=== PATIENT | female | born 1975 | race Caucasian/White ===

== ENCOUNTER 2017-08-11 05:34 | Outpatient (CLI) | payer MEDICAID ==
[~2017-08-11] VITALS: Ht 162.6 cm; Wt 112.9 kg
[2017-08-11] MEDS ORDERED: METF850T2 PO (12:00)
[2017-08-11] MEDS ORDERED: LIRA0.6P3 SQ (12:00)
[2017-08-11] MEDS ORDERED: LEVO75TA6 PO (12:00)
[2017-08-11] MEDS ORDERED: VENL100T2 PO (12:00)
[2017-08-11] MEDS ORDERED: DICY20TA10 PO (12:00)
[2017-08-11] MEDS ORDERED: RANI300T4 PO (12:00)
[2017-08-11] MEDS ORDERED: NORT25CA PO (12:00)
[2017-08-11] MEDS ORDERED: GABA-488 PO (12:00)
[2017-08-11] MEDS ORDERED: ARIP15TA4 PO (12:00)
[2017-08-11] MEDS ORDERED: LOSA25TA21 PO (12:00)
== END 2017-08-11 12:03 ==
LOC: PREOP 05:34
PROVIDERS: ATTEND Surgery
DX: Z01.818 Encounter for other preprocedural examination (principal); K43.9 Ventral hernia without obstruction or gangrene

== ENCOUNTER 2017-08-13 05:55 | Day surgery (SDC) | payer MEDICAID ==
[~2017-08-13] VITALS: Ht 162.6 cm; Wt 109.9 kg
[~2017-08-13 05:55] MED LIST: ARIP15TA4 PO; DICY20TA10 PO; GABA-488 PO; LEVO75TA6 PO; LIRA0.6P3 SQ; LOSA25TA21 PO; METF850T2 PO; NORT25CA PO; RANI300T4 PO; VENL100T2 PO
[2017-08-13] MEDS ORDERED: morphine INJ 10 MG/ML 1ML (SYR OR VIAL) IV PRN ×2 (06:15→10:45)
[2017-08-13] MEDS ORDERED: oxyCODONE ER 10 MG (OxyCONTIN CR) TAB PO ONE ×2 (06:15→10:45)
[2017-08-13] MEDS ORDERED: CELECOXIB 100 MG (CeleBREX) CAP PO ONE ×2 (06:15→10:45)
[2017-08-13] MEDS ORDERED: ACETAMINOPHEN 500 MG TAB (TYLENOL) PO ONE ×2 (06:15→10:45)
[2017-08-13] MEDS ORDERED: PREGABALIN 75 MG (LYRICA) CAP PO ONE ×2 (06:15→10:45)
[2017-08-13 06:34] LABS: RED BLOOD COUNT 4.55 10^6/uL (4.35-5.85); RED CELL DISTRIBUTION WIDTH 13.5 % (10.0-14.5); WHITE BLOOD COUNT 10.4 10^3/uL (4.3-11.0)
[2017-08-13] MEDS ORDERED: KETAMINE HCL 100 MG/ML 5 ML VIAL ONE (06:34)
[2017-08-13] MEDS ORDERED: fentaNYL INJECTION 100 MCG/2 ML AMP ONE (06:34)
[2017-08-13] MEDS ORDERED: MIDAZOLAM 2 MG/2 ML (VERSED) VIAL ONE (06:34)
[2017-08-13] MEDS ORDERED: LIDOCAINE PF 2% 5 ML (XYLOCAINE) VIAL ONE ×2 (06:34→06:51)
[2017-08-13] MEDS ORDERED: ROCURONIUM 50 MG/5 ML (ZEMURON) VIAL IV ONE ×2 (06:34→08:39)
[2017-08-13] MEDS ORDERED: proPOfol 200 MG/20 ML (DIPRIVAN) VIAL IV ONE (06:34)
[2017-08-13] MEDS ORDERED: ONDANSETRON 4 MG/2 ML (SDV) Z0FRAN ONE (06:34)
[2017-08-13] MEDS ORDERED: SEVOFLURANE (ULTANE) 15 ML INHAL SOLN ONE ×10 (06:34→10:10)
[2017-08-13] MEDS ORDERED: ceFAZolin 2 GM/50 ML NS 50 ML ONE (06:44)
[2017-08-13] MEDS ORDERED: LIDOCAINE PF 0.5% 50 ML (XYLOCAINE) VIAL ONE (06:58)
[2017-08-13 07:07] VITALS: BP 142/95
[2017-08-13] MEDS ORDERED: LACTATED RINGERS 1,000 ML IV PRN (07:09)
[2017-08-13] MEDS ORDERED: ceFAZolin 2 GM/NS 50 ML IV ONE (07:15)
[2017-08-13] MEDS ORDERED: BUP/EPI 0.5% 1:200,000 (MARCAINE) 10ML VIAL IJ ONE (07:18)
--- NOTE | 2017-08-13 08:04 | History & Physicial ---
History of Present Illness History of Present Illness Reason for visit/HPI To undergo robotic assisted repair of ventral hernia with mesh Date of Admission 08/13/17 Date Seen by Provider: Jul 08, 2017 Time Seen by Provider: 08:01 I consulted on this patient on 08/13/17 07:59 Attending Physician Deana Loaiza MD Admitting Physician Parveen Singh DO Consult Allergies and Home Medications Allergies Coded Allergies: cimetidine (Verified Allergy, Unknown, 08/11/17) cortisone (Verified Allergy, Unknown, swelling, 08/11/17) aspirin (Verified Adverse Reaction, Unknown, hx of ulcers, 08/11/17) bismuth subsalicylate (Verified Adverse Reaction, Unknown, vomiting, 08/11) Home Medications Aripiprazole 15 Mg Tablet, 15 MG PO DAILY, (Reported) Dicyclomine HCl 20 Mg Tablet, 20 MG PO ACHS, (Reported) Gabapentin 300 Mg Capsule, 600 MG PO TID, (Reported) take 2 (300mg) tab Levothyroxine Sodium 75 Mcg Tablet, 75 MCG PO DAILY, (Reported) Liraglutide 0.6 Mg/0.1 Ml Pen.injctr, 1.8 MG SQ DAILY, (Reported) Losartan Potassium 25 Mg Tablet, 25 MG PO DAILY, (Reported) Metformin HCl 850 Mg Tablet, 850 MG PO TIDWM, (Reported) Nortriptyline HCl 25 Mg Capsule, 25 MG PO HS, (Reported) Ranitidine HCl 300 Mg Tablet, 300 MG PO BID, (Reported) Venlafaxine HCl 100 Mg Tablet, 100 MG PO TIDWM, (Reported) Past [id number] Hx Patient Social History Marrital Status: Employed/Student: unemployed Alcohol Use: Denies Use Recreational Drug Use: No Smoking Status: Never a Smoker Recent Foreign Travel: No Contact w/other who traveled: No Recent Hopitalizations: No Recent Infectious Disease Expo: No Immunizations Up To Date Tetanus Booster (TDap): Unknown Seasonal Allergies Seasonal Allergies: Yes (Sometimes) Surgeries Yes Appendectomy, Bowel Surgery, Gallbladder, Hysterectomy Respiratory No Currently Using CPAP: Yes Cardiovascular Yes Hypertension Neurological Yes Neuropathy Reproductive System : No 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 Genitourinary No Gastrointestinal Yes Ulcer Musculoskeletal Yes Arthritis Endocrine History of Endocrine Disorders: Yes Endocrine Disorders: Diabetes, Non-Insulin dep HEENT History of HEENT Disorders: No Loss of Vision: Denies Hearing Impairment: Denies Cancer Yes Colon Did You Recieve Any Treatments: Yes Type of Treatment: Surgical Intervention Psychosocial History of Psychiatric Problem: Yes Behavioral Health Disorders: Bipolar, Depression Integumentary History of Skin or Integumenta: No Skin/Integumentary Disorders: Psoriasis Reviewed Nursing Assessment Reviewed/Agree w Nursing PMH: Yes Family Medical History Significant Family History: Cancer Constitutional: no symptoms reported EENTM: no symptoms reported Gastrointestinal: see HPI Genitourinary: no symptoms reported Musculoskeletal: joint pain Skin: no symptoms reported Psychiatric/Neurological: Anxiety Physical Exam Vital Signs Vital Sign - Last 12Hours 08/13/17 07:07 Temp 98.7 Pulse 97 Resp 16 B/P (MAP) 142/95 Pulse Ox 97 O2 Delivery Room Air Capillary Refill : General Appearance: No Apparent Distress Neck: Normal Inspection Respiratory: Lungs Clear Cardiovascular: Regular Rate, Rhythm Gastrointestinal: Other Rectal: Deferred Back: Normal Inspection Extremity: Normal Inspection Neurologic/Psychiatric: Alert, Oriented x3 Skin: Warm/Dry Comments Lefr lower para-median and a midlinescar with a hernia around the umbilicus. Transverse scar over the left flank with no hernia Assessment/Plan Assessment and Plan Lady with a ventral hernia, for robotic assisted repair with mesh. Discussed in detail Problems: Admission Diagnosis Ventral hernia Clinical Quality Measures DVT/VTE Risk/Contraindication: Risk Factor Score Per Nursin RFS Level Per Nursing on Admit: 4+=Very High DEANA LOAIZA MD Aug 13, 2017 8:04 am
--- NOTE | 2017-08-13 08:05 | Progress Note-Pre Operative ---
Pre-Operative Progress Note H&P Reviewed The H&P was reviewed, patient examined and no changes noted. Date Seen by Provider: Aug 07, 2007 Time Seen by Provider: 10:35 Date H&P Reviewed: Aug 13, 2017 Time H&P Reviewed: 07:55 Pre-Operative Diagnosis: Ventral hernia DEANA LOAIZA MD Aug 13, 2017 8:05 am
[2017-08-13] MEDS ORDERED: NEOSTIGMINE (BLOXIVERZ ) 1 MG/1ML 10 ML VIAL ONE (09:58)
[2017-08-13] MEDS ORDERED: GLYCOPYRROLATE 0.2 MG/ML (ROBINUL) 2 ML VIAL ONE (09:58)
[2017-08-13] MEDS ORDERED: morphine INJ 10 MG/ML 1ML (SYR OR VIAL) ONE (10:16)
--- NOTE | 2017-08-13 10:31 | Operative Report ---
Operative Report Date of Procedure/Surgery Aug 13, 2017 Surgeon (s) DEANA LOAIZA MD Social Service Manager (s): N/a Post-Operative Diagnosis same Procedure Performed Robotic assisted repair of ventral hernia with mesh Description of Procedure Anesthesia Type: General Estimated blood loss (mL): Minimal Specimen(s) collected/removed none Description of the Procedure Indication for procedure: This lady presented with a symptomatic ventral hernia around her umbilicus, resulting from previous colon resection. She was offered minimally invasive repair with robotic assistance and mesh reinforcement. Informed consent was obtained after reviewing the operative details and complications of wound infection, infection of the mesh and recurrence of the hernia. Description of the procedure: She was placed supine on the operating table and general anesthesia induced using an endotracheal tube. Ancef 2 g was administered intravenously as prophylaxis against wound infection. Sequential compression devices were placed around her legs, to minimize the risk of venous thrombosis. A Calvin catheter was placed to decompress the bladder, mainly in anticipation of prolonged surgery. It was removed at the end of the operation Abdomen was prepared and draped in the usual sterile manner. The right side of her body was lifted up on a sheet and her pressure areas were padded and protected. Pneumoperitoneum was established using a Veress needle introduced over the right subcostal margin, along the midaxillary line. Intra-abdominal pressure was maintained at 17 mmHg, due to obesity. A 12 mm trocar was placed and anatomy visualized using the high definition, 3-dimensional laparoscope associated with [employer] system. The hernia was identified containing mainly omentum. Under direct view, I placed another 12 mm trocar over the right side of the abdomen, along the mid axillary line, followed by a long, 8 mm robotic trocar over the right lower quadrant. The robotic system was then off in place. Omentum was taken down using hook cautery, excising the sac. The defect measured 4 cm in diameter and was closed primarily using a 0, nonabsorbable VLOC suture with robotic assistance. During this maneuver, intra-abdominal pressure was reduced to 10 mm to avoid any tension on the suture line. The repair was then reinforced using a polypropylene mesh measuring 15.2 cm in diameter, connected to a self retaining balloon system. The mesh was held up using the balloon system and the edges where secured to the abdominal musculature with 20 be LOC sutures, using robotic assistance. Hemostasis was satisfactory and the operation concluded. Pneumoperitoneum was deflated and the incisions were closed with 4-0 Vicryl, in a subcuticular fashion. 0.5 percent Marcaine with epinephrine was infiltrated along the incisions, both pre-emptively and at the conclusion of the operation. She tolerated the procedure well, was extubated in the operative and taken to the recovery room in a stable condition. Findings of the Procedure see operative report Allergies and Home Medications Allergies Coded Allergies: cimetidine (Verified Allergy, Unknown, 08/11/17) cortisone (Verified Allergy, Unknown, swelling, 08/11/17) aspirin (Verified Adverse Reaction, Unknown, hx of ulcers, 08/11/17) bismuth subsalicylate (Verified Adverse Reaction, Unknown, vomiting, 08/11) Home Medications Aripiprazole 15 Mg Tablet, 15 MG PO DAILY, (Reported) Dicyclomine HCl 20 Mg Tablet, 20 MG PO ACHS, (Reported) Gabapentin 300 Mg Capsule, 600 MG PO TID, (Reported) take 2 (300mg) tab Levothyroxine Sodium 75 Mcg Tablet, 75 MCG PO DAILY, (Reported) Liraglutide 0.6 Mg/0.1 Ml Pen.injctr, 1.8 MG SQ DAILY, (Reported) Losartan Potassium 25 Mg Tablet, 25 MG PO DAILY, (Reported) Metformin HCl 850 Mg Tablet, 850 MG PO TIDWM, (Reported) Nortriptyline HCl 25 Mg Capsule, 25 MG PO HS, (Reported) Ranitidine HCl 300 Mg Tablet, 300 MG PO BID, (Reported) Venlafaxine HCl 100 Mg Tablet, 100 MG PO TIDWM, (Reported) DEANA LOAIZA MD Aug 13, 2017 10:31 am
[2017-08-13] MEDS ORDERED: HYDR-3820 PO (10:34)
--- NOTE | 2017-08-13 10:35 | Discharge Inst-Simple/Standard ---
Discharge Inst-Standard Discharge Medications New, Converted or Re-Newed RX: RX on Chart Patient Instructions/Follow Up Plan of Care/Instructions/FU: Band-Aids off in 48 hours. Abdominal binder to be used for 2 weeks while ambulating. Follow-up in a month Activity as Tolerated: No Goal: No lifting over 10 pounds Discharge Diet: ADA Diet DEANA LOAIZA MD Aug 13, 2017 10:35 am
[2017-08-13] MEDS ORDERED: KETOROLAC 30 MG/ML VIAL IV SCH (10:45)
[2017-08-13] MEDS ORDERED: morphine INJ 10 MG/ML 1ML (SYR OR VIAL) IVP PRN (11:15)
[2017-08-13] MEDS ORDERED: MEPERIDINE (DEMEROL) INJ 50 MG/ML IVP PRN (11:15)
[2017-08-13 12:00] VITALS: BP 118/81
[2017-08-13] MEDS ORDERED: PATIENT MAY USE OWN MEDS, ALL MC SCH (12:30)
[2017-08-13 13:44] VITALS: BP 118/81
[2017-08-13] MEDS: inSUlin ASPART (NovoLOG) 1 UNIT/0.01 ML (CHARGE PER UNIT) SC SCH ×3 (14:57→21:36)
[2017-08-13] MEDS: KETOROLAC 30 MG/ML VIAL IV SCH ×3 (15:00→18:39)
[2017-08-13] MEDS: GABAPENTIN 300 MG (NEURONTIN) CAP PO SCH ×2 (15:06→21:34)
[2017-08-13 16:00] VITALS: BP 123/83
[2017-08-13] MEDS ORDERED: INFLUENZA TRIvalent 2017-2018 0.5 ML/45 MCG SYR IM ONE (17:00)
[2017-08-13 20:01] VITALS: BP 106/69
[2017-08-13] MEDS ORDERED: NORTRIPTYLINE 25 MG (PAMELOR) CAP PO SCH (21:00)
[2017-08-14] MEDS: KETOROLAC 30 MG/ML VIAL IV SCH ×2 (00:28→05:36)
[2017-08-14 00:53] VITALS: BP 128/73
[2017-08-14 04:44] VITALS: BP 119/73
[2017-08-14] MEDS: inSUlin ASPART (NovoLOG) 1 UNIT/0.01 ML (CHARGE PER UNIT) SC SCH ×2 (05:36→11:30)
[2017-08-14 07:41] VITALS: BP 105/68
[2017-08-14] MEDS ORDERED: LEVOTHYROXINE 75 MCG (LEVOTHROID) TABLET PO SCH (09:00)
[2017-08-14] MEDS ORDERED: LOSARTAN 25 MG (COZAAR) TAB PO SCH (09:00)
[2017-08-14] MEDS ORDERED: ARIPIPRAZOLE 15 MG (ABILIFY) TAB PO SCH (09:00)
[2017-08-14] MEDS: GABAPENTIN 300 MG (NEURONTIN) CAP PO SCH (10:33)
== END 2017-08-14 11:35 | disposition home or self-care (01) ==
LOC: SDC 05:55 → 4TH 11:48 → SDC 08-14 11:35
PROVIDERS: ATTEND Surgery
DX: K43.9 Ventral hernia without obstruction or gangrene (principal); E11.9 Type 2 diabetes mellitus without complications; F31.9 Bipolar disorder, unspecified; L40.9 Psoriasis, unspecified
CPT/HCPCS: 36415; 82962; 85027; 87081